=== PATIENT | male | born 1980 | race Two or more races ===

== ENCOUNTER 2024-03-01 12:18 | Emergency (ER) | payer MEDICAID, SELFPAY ==
[2024-03-01 12:38] VITALS: PULSE 104; RESP 16; O2SAT 99
[2024-03-01 12:43] VITALS: BP 173/90; PULSE 112; RESP 20; TEMP 36.8; O2SAT 98; BMI 20.1
--- NOTE | 2024-03-01 12:48 | EDNOTE_ITS ---
Lower Extremity Injury RME/HPI General Chief Complaint: Ankle/Foot Injury Stated Complaint: FOOT PAIN Time Seen by Provider: 03/01/24 12:20 Arrival date/time: 03/01/24 12:18 RME / HPI RME / HPI Narrative: 43-year-old male patient came in for evaluation regarding foot blisters. Patient been walking a lot due to being homelessness, and noted some foot blister on the left, plantar aspect, severity moderate. Patient denies any fever. Denies any other complaints. Patient is ambulatory Related Data Previous Rx's ?Medication ?Instructions ?Recorded sulfamethoxazole 800 1 tab PO BID #14 tabs 03/01/24 mg-trimethoprim 160 mg tablet (Bactrim DS) Allergies Allergy/AdvReac Type Severity Reaction Status Date / Time No Known Allergies Allergy Verified 03/01/24 12:37 Review of Systems Review of Systems Narrative Review of Systems: Review of system reviewed and within normal limits except mentioned in HPI ED Exam Narrative Physical exam: VITAL SIGNS: Reviewed. GENERAL APPEARANCE: Alert and interactive, follows commands, no acute distress, HEAD AND FACE: Non-traumatic. ENT: PERRL, pink conjunctivitis, eyelid no trauma, Mucous membrane moist. NECK: Supple, nontender, no nuchal rigidity. CHEST: No tenderness, no crepitus, no paradoxical movement, no retractions. LUNGS: Clear, well ventilated, symmetric, no rales, no wheezing, no ronchi, no stridor, good breath sounds bilaterally. HEART: Regular rate, regular rhythm, no murmur, no gallops. ABDOMEN: Soft, positive bowel sounds, nondistended, no guarding, nontender, no rebound, no masses, RECTAL: Deferred. GENITAL: Deferred. NEUROLOGICAL: Gross motor function intact sensory function intact, Appropriate for age. MUSCULOSKELETAL: low back nontender, full range of motion. EXTREMITIES: Nontender, full range of motion. + 2 x 2 cm irregular shaped, foot blister, left foot no pus noted nonfluctuant SKIN: Color pink, dry, no rash, no lacerations, LYMPHATICS: Deferred. Course Quality Measures none Orders Category Date Time Status Bacitracin Oint Tube Med 03/01/24 12:45 Discontinued See Dose Instructions TOP X1 ONE Ibuprofen Tab [Motrin Tab] Med 03/01/24 12:45 Discontinued 800 mg PO X1 ONE Trimethoprim/Sulfa 160/800 Ds [Bactrim Ds] Med 03/01/24 12:45 Discontinued 1 tab PO X1 ONE Vital Signs Vital signs: Vital Signs Temperature 98.3 F 03/01/24 12:43 Pulse Rate 112 H 03/01/24 12:43 Respiratory Rate 20 03/01/24 12:43 Blood Pressure 173/90 H 03/01/24 12:43 Pulse Oximetry (%) 98 03/01/24 12:43 Oxygen Delivery Method Room Air 03/01/24 12:43 Extremity Injury, Lower MDM Narrative MDM Narrative:: 43-year-old male patient came in for evaluation regarding foot blisters. Patient been walking a lot due to being homelessness, and noted some foot blister on the left, plantar aspect, severity moderate. Patient denies any fever. Denies any other complaints. Patient is ambulatory Bacitracin dressing applied, patient was given first dose of Bactrim and Motrin in the emergency room. Patient was advised to do daily dressing and avoid walking a lot for his blister to heal. Patient agrees with the plan Patient data External records reviewed:: None Clinical information provided by:: patient Social determinants that could affect healthcare access:: housing Patient has the following chronic illnesses:: None How is presenting disease/condition affected by chronic disease/condition?: no chronic disease Evaluation data The following diagnostics were reviewed and interpreted by me:: other (specify) (None) Lab and/or radiology exams considered but not ordered:: None Interpretation Summary: None Medications / Prescriptions Medications or Prescriptions considered but not ordered:: None Medication administrations:: Medication Administration History Discontinued Medications Bacitracin (Bacitracin Oint 15 Gm Tube) 0 gm TOP X1 ONE Stop: 03/01/24 12:46 Ibuprofen (Ibuprofen Tab 400 Mg Tablet) 800 mg PO X1 ONE Stop: 03/01/24 12:46 Trimethoprim/Sulfamethoxazole (Trimethoprim/Sulfa 160/800 Ds Tablet) 1 tab PO X1 ONE Stop: 03/01/24 12:46 Bactrim, Motrin and bacitracin dressing applied Consultations Consultation(s) initiated? (list below): No Diagnosis Extremity Injury, Lower Differential Diagnosis: other (Foot blister, homelessness, foot infection) Most likely diagnosis given after review of the tests above:: Foot blister, homelessness Admission Indicated Admission indicated?: not indicated Explain why admission is indicated or not indicated:: Stable Admission Request Was there a request for admission?: No Disposition Plan Disposition Plan: Discharge Discharge Attestation Discharge Attestation: The patient given an opportunity to ask questions and understood the discharge instructions. Discharge instructions specifically effects, indications for sooner follow up or return to the emergency department, and the expected course of current diagnosis. Patient condition: Stable Discharge Plan Plan Patient Disposition: HOME (Self Care) Disposition Comment: stable Prescriptions/Referrals Prescriptions/Med Rec: New sulfamethoxazole-trimethoprim [Bactrim DS] 800-160 mg tablet 1 tab PO BID Qty: 14 0RF Problem List Clinical Impression: Blister of foot, Homelessness Patient/Caregiver Discharge Instructions Discharge Activity: activity as tolerated Education Materials: ED Blister (Adult) Additional Instructions: Thank you for the opportunity for serving you today. You are stable for discharged . You are advised to: Follow-up with your PCP in 1 to 2 days Return to ED for worsening of symptoms Increase oral fluids Take medication as prescribed Please avoid walking a lot for your foot blister to heal Daily dressing Neosporin as needed Print Language: Kiswahili Stand Alone Forms: Daily Award Info., Patient Portal Info Letter PA/YEISON Supervising Physician NICKY/YEISON Supervising Physician: MD Heladio
[2024-03-01] MEDS: TRIMETHOPRIM/SULFA 160/800 DS TABLET 1 TAB PO (13:30)
[2024-03-01] MEDS: IBUPROFEN TAB 400 MG TABLET 800 MG PO (13:30)
[2024-03-01] MEDS: BACITRACIN OINT 15 GM TUBE TOP (13:31)
== END 2024-03-01 14:04 | disposition home or self-care (01) ==
PROVIDERS: Emergency Provider Emergency Medicine
DX: S90.829A Blister (nonthermal), unspecified foot, initial encounter (principal); X58.XXXA Exposure to other specified factors, initial encounter; Y93.01 Activity, walking, marching and hiking; Z59.00 Homelessness unspecified
CPT/HCPCS: 99282; A9270

== ENCOUNTER 2024-03-02 04:06 | Emergency (ER) | payer MEDICAID, SELFPAY ==
[2024-03-02 04:16] VITALS: BP 169/116; PULSE 104; RESP 18; TEMP 36.5; O2SAT 99; BMI 20.1
--- NOTE | 2024-03-02 04:31 | PD.EDRME ---
Rapid Medical Screening Exam RME Arrival date/time: 03/02/24 04:06 43 year old male present to Ed for c/o elevated bp, blood glucose and bilateral blister on foot I have greeted and performed a focused initial assessment of this patient. A comprehensive ED assessment and evaluation of the patient, analysis of all test results, and completion of the medical decision making process will be conducted by additional ED providers. Chief Complaint: Ankle/Foot Injury Time Seen by Provider: 03/02/24 04:13 Vital signs: Vital Signs Temperature 97.7 F 03/02/24 04:16 Pulse Rate 104 H 03/02/24 04:16 Respiratory Rate 18 03/02/24 04:16 Blood Pressure 169/116 H 03/02/24 04:16 Pulse Oximetry (%) 99 03/02/24 04:16 Oxygen Delivery Method Room Air 03/02/24 04:16
[2024-03-02 05:32] LABS: Hematocrit 37.8 % (41.0-53.0); Hemoglobin 13.6 g/dL (13.5-16.0); Lymphocytes % (Auto) 25 % (10-50); Mean Corpuscular Hemoglobin 31.9 pg (25.0-35.0); Mean Corpuscular Volume 89 fL (80-100); Monocytes % (Auto) 7 % (0-12); Neutrophils % (Auto) 66 % (37-80); Platelet Count 332 Thou/mm3 (140-440); RDW Standard Deviation 39.3 fL (35.1-43.9); Red Blood Count 4.27 Miln/mm3 (4.50-5.90); White Blood Count 9.1 Thou/mm3 (3.8-10.6)
[2024-03-02 05:33] LABS: Basophils # (Auto) 0.1 Thou/mm3 (0.0-0.2); Basophils % (Auto) 1 % (0-2.5); Eosinophils # (Auto) 0.1 Thou/mm3 (0.0-0.5); Eosinophils % (Auto) 1 % (0-10); Immature Granulocytes % (Auto) 0 % (0-0); Immature Granulocytes Auto 0.02 Thou/mm3 (0.00-0.00); Lymphocytes # (Auto) 2.3 Thou/mm3 (1.0-4.8); Monocytes # (Auto) 0.7 Thou/mm3 (0.0-0.8); Nucleated Red Blood Cell % 0 /100 WBC (0)
[2024-03-02 05:37] LABS: Beta Hydroxybutyrate 0.2 mmol/L (<0.6)
[2024-03-02 06:32] LABS: Alanine Aminotransferase 27 U/L (10-49); Albumin, Serum 4.3 gm/dL (3.5-5.0); Anion Gap 9 (7-16); Aspartate Amino Transferase 31 U/L (0-34); BUN/Creatinine Ratio 12 Ratio (12-20); Bilirubin,Total 0.5 mg/dL (0.3-1.2); Blood Urea Nitrogen 13 mg/dL (9-23); Carbon Dioxide 26.6 mMol/L (20.0-31.0); Chloride 99 mMol/L (98-107); Creatinine (Component) 1.1 mg/dL (0.6-1.3); Estimated Creatinine Clearance 69.4 mL/min (>60); Globulin 2.4 gm/dL (2.3-3.5); Glucose 253 mg/dL (74-106); Osmolality,Calculated 279 (275-295); Potassium 3.2 mMol/L (3.4-5.1); Sodium 135 mMol/L (136-145); Total Protein 6.7 gm/dL (5.7-8.2); eGFR > 60 See Note
[2024-03-02 06:33] LABS: Albumin/Globulin Ratio 1.8 (1.2-2.2); Alkaline Phosphatase 225 U/L (46-116)
--- NOTE | 2024-03-02 07:26 | EDNOTE_ITS ---
ED Wound/Laceration-RME/HPI General Chief Complaint: Ankle/Foot Injury Stated Complaint: SORES TO FOOT Time Seen by Provider: 03/02/24 04:13 Source: patient Arrival date/time: 03/02/24 04:06 43-year-old male with past medical history of diabetes presents to emergency department complaining of blisters to bilateral feet that have been ongoing for 3 days. Mode of arrival: ambulatory Limitations: no limitations RME / HPI RME / HPI narrative: 03/02/24 04:06 43 year old male present to Ed for c/o elevated bp, blood glucose and bilateral blister on foot I have greeted and performed a focused initial assessment of this patient. A comprehensive ED assessment and evaluation of the patient, analysis of all test results, and completion of the medical decision making process will be conducted by additional ED providers. Related Data Previous Rx's ?Medication ?Instructions ?Recorded sulfamethoxazole 800 1 tab PO BID #14 tabs 03/01/24 mg-trimethoprim 160 mg tablet (Bactrim DS) amoxicillin 875 mg-potassium 1 tab PO BID 7 days #14 tabs 03/02/24 clavulanate 125 mg tablet Allergies Allergy/AdvReac Type Severity Reaction Status Date / Time No Known Allergies Allergy Verified 03/02/24 04:09 Review of Systems Review of Systems Systems Reviewed: All systems reviewed, normal except as documented Constitutional Constitutional: Reports system reviewed and no additional complaints, except as documented, Denies body ache(s), Denies chills and Denies fever(s) Eyes Eyes: Reports system reviewed and no additional complaints, except as documented and Denies change in vision ENT Ears, Nose, Mouth, and Throat: Reports system reviewed and no additional complaints, except as documented, Denies disequilibrium, Denies dizziness, Denies sore throat and Denies vertigo Cardiovascular Cardiovascular: Reports system reviewed and no additional complaints, except as documented, Denies chest pain and Denies dyspnea Respiratory Respiratory: Reports system reviewed and no additional complaints, except as documented, Denies chest congestion, Denies cough and Denies dyspnea Gastrointestinal Gastrointestinal: Reports system reviewed and no additional complaints, except as documented, Denies abdominal pain, Denies nausea and Denies vomiting Musculoskeletal Musculoskeletal: Reports system reviewed and no additional complaints, except as documented, Denies abnormal gait and Denies arthralgias Integumentary/Breasts Skin/Breast: Reports system reviewed and no additional complaints, except as documented, Denies erythema, Denies rash and Reports wounds (Blisters) Neurologic Neurologic: Reports system reviewed and no additional complaints, except as documented, Denies abnormal gait, Denies disequilibrium, Denies dizziness and Denies vertigo Past Medical History Social History SMOKING STATUS: Never smoker ED Exam General Limitations: Present no limitations General appearance: Present alert and in no apparent distress Head Head exam: Present atraumatic Eye Eye exam: Present normal appearance, PERRL and EOMI ENT ENT exam: Present normal exam, normal oropharynx and mucous membranes moist Neck Neck exam: Present normal inspection, full ROM and trachea midline Chest Chest inspection: Present normal inspection and symmetric chest wall rise Respiratory Respiratory exam: Present normal lung sounds bilaterally Cardiovascular Cardiovascular exam: Present regular rate, normal rhythm and normal heart sounds Abdominal Exam Abdominal exam: Present soft and normal bowel sounds Extremities Exam Extremities exam: Present normal inspection and full ROM Expanded Lower Extremity Exam Bottom foot image: 2 1. Superficial blisters with no sign of infection 2. Superficial blisters no sign of infection Back Exam Back exam: Present normal inspection and full ROM Neurological Exam Neurological exam: Present alert, oriented X3 and CN II-XII intact Psychiatric Psychiatric exam: Present normal affect and normal mood Skin Skin exam: Present warm, dry and normal color Course Quality Measures none Orders Category Date Time Status Blood glucose [Bedside Blood Glucose] NOW Care 03/02/24 04:14 Completed Beta Hydroxybutyrate Stat Lab 03/02/24 05:00 Completed CBC Stat Lab 03/02/24 05:00 Completed CMP [Comprehensive Metabolic Panel] Stat Lab 03/02/24 05:00 Completed Vital Signs Vital signs: Vital Signs Temperature 97.7 F 03/02/24 04:16 Pulse Rate 104 H 03/02/24 04:16 Respiratory Rate 18 03/02/24 04:16 Blood Pressure 169/116 H 03/02/24 04:16 Pulse Oximetry (%) 99 03/02/24 04:16 Oxygen Delivery Method Room Air 03/02/24 04:16 99% room air within normal limits Wound / Laceration MDM Narrative MDM Narrative:: 43-year-old male with past medical history of diabetes presents to emergency department complaining of blisters to bilateral feet that have been ongoing for 3 days. Patient appears nontoxic and hemodynamically stable. CBC unremarkable for any leukocytosis. Anion gap closed with normal beta hydroxy. Blood glucose elevated patient diabetic. Blisters to bilateral feet did not appear to be diabetic foot wounds with any localized induration or redness or purulent drainage. Will give prophylactic antibiotic and instructed to follow-up with primary care provider and continue taking medication for diabetes. Patient data External records reviewed:: [facility] previous records Clinical information provided by:: patient Social determinants that could affect healthcare access:: housing Patient has the following chronic illnesses:: See chart How is presenting disease/condition affected by chronic disease/condition?: u neffected by Evaluation data The following diagnostics were reviewed and interpreted by me:: lab results Lab and/or radiology exams considered but not ordered:: Ordered Interpretation Summary: Interpreted by me Medications / Prescriptions Medications or Prescriptions considered but not ordered:: N/A Medication administrations:: N/A Consultations Consultation(s) initiated? (list below): No Diagnosis Wound Differential Diagnosis: abrasion and other (Cellulitis, diabetic foot ulcer) Most likely diagnosis given after review of the tests above:: Blisters Admission Indicated Admission indicated?: not indicated Admission Request Was there a request for admission?: No Disposition Plan Disposition Plan: Discharge Discharge Attestation Discharge Attestation: The patient and all family members were given an opportunity to ask questions and understood the discharge instructions. Discharge instructions specifically effects, indications for sooner follow up or return to the emergency department, and the expected course of current diagnosis. Patient condition: Stable Discharge Plan Plan Patient Disposition: HOME (Self Care) Disposition Comment: Stable Prescriptions/Referrals Prescriptions/Med Rec: New amoxicillin-pot clavulanate 875-125 mg tablet 1 tab PO BID 7 Days Qty: 14 0RF No Action sulfamethoxazole-trimethoprim [Bactrim DS] 800-160 mg tablet 1 tab PO BID Qty: 14 0RF Problem List Clinical Impression: Blister of foot, Homelessness Patient/Caregiver Discharge Instructions Discharge Activity: activity as tolerated Education Materials: ED Blister (Adult) Additional Instructions: Pamphlet with local resources provided with addresses and phone number. Follow- up with primary care provider in 2 to 3 days. Return to emergency department for any worsening symptoms or as needed. Print Language: Wallisian Stand Alone Forms: Daily Award Info., Patient Portal Info Letter PA/YEISON Supervising Physician PA/YEISON Supervising Physician: Dr. Leija
== END 2024-03-02 07:43 | disposition home or self-care (01) ==
LOC: SERX 07:48
PROVIDERS: Physician Assistant; Emergency Provider Emergency Medicine
DX: S90.822A Blister (nonthermal), left foot, initial encounter (principal); S90.821A Blister (nonthermal), right foot, initial encounter; X58.XXXA Exposure to other specified factors, initial encounter; Z59.00 Homelessness unspecified; E11.65 Type 2 diabetes mellitus with hyperglycemia
CPT/HCPCS: 36415; 80053; 82010; 85025; 99283